=== PATIENT | female | born 1985 | race Two or more races ===

== ENCOUNTER 2020-03-05 09:00 | Emergency (ER) | payer OTHER ==
--- NOTE | 2020-03-05 09:11 | ED Physician Documentation ---
PD HPI FEMALE - Stated complaint Stated Complaint: 6 WEEKS, SPOTTING, CRAMPS - History obtained from History obtained from: Patient - History of Present Illness Timing - onset: How many days ago (2) Timing - duration: Days (2) Timing - details: Intermittant Associated symptoms: Vaginal bleeding (spotting with mild cramps 2 days ago and again today. Is 6 weeks presumedly. She had been having some irregular bleeding and cramps with IUD, so had the IUD removed 7 weeks ago. No other control used. Had not period and so had urine preg test last week that was positive.). No: Fever Contributing factors: , Sexually active. No: Exposed to STD Similar symptoms before: Has not had sx before (did not have spotting with other pregnancies.) Recently seen: Not recently seen Review of Systems Constitutional: denies: Fever Throat: denies: Sore throat Respiratory: denies: Cough : reports: Vaginal bleeding (spotting), Now EGA (6-7). denies: Dysuria, Discharge Neurologic: denies: Near syncope PD PAST MEDICAL HISTORY - Past Medical History Past Medical History: No - Allergies Allergies/Adverse Reactions: Allergies Allergy/AdvReac Type Severity Reaction Status Date / Time acetaminophen [From [place]] Allergy Anaphylaxis Verified 03/05/20 09:13 hydrocodone [From [place]] Allergy Anaphylaxis Verified 03/05/20 09:13 PD ED PE NORMAL - Vitals Vital signs reviewed: Yes - General General: Alert and oriented X 3, No acute distress, Well developed/nourished - Cardiac Cardiac: RRR, No murmur - Respiratory Respiratory: Clear bilaterally - Abdomen Abdomen: Soft, Non tender - Female Female : Deferred, Other (bedside U/S by me showed an IUP with 6w2d size of GS with pole. No pelvic free fluid. ) - Rectal Rectal: Deferred - Back Back: No CVA TTP - Derm Derm: Normal color, Warm and dry Results - Vitals Vitals: Vital Signs - 24 hr 03/05/20 03/05/20 09:07 10:29 Temperature 37.0 C Heart Rate 79 60 Respiratory 16 16 Rate Blood Pressure 119/79 111/73 O2 Saturation 100 100 Oxygen O2 Source Room air - Labs Labs: Laboratory Tests 03/05/20 03/05/20 03/05/20 09:32 09:58 09:58 WBC 3.3 L RBC 4.27 Hgb 12.7 Hct 37.0 MCV 86.7 MCH 29.7 MCHC 34.3 RDW 12.4 Plt Count 338 MPV 8.9 Neut # (Auto) 1.3 L Lymph # (Auto) 1.6 [place] # (Auto) 0.4 Eos # (Auto) 0.1 Baso # (Auto) 0.0 Absolute Nucleated RBC 0.00 Nucleated RBC % 0.0 HCG, Quant Urine Color YELLOW Urine Clarity CLEAR Urine pH 6.5 Ur Specific [place] 1.020 Urine Protein NEGATIVE Urine Glucose (UA) NEGATIVE Urine Ketones NEGATIVE Urine Occult Blood NEGATIVE Urine Nitrite NEGATIVE Urine Bilirubin NEGATIVE Urine Urobilinogen 0.2 (NORMAL) Ur Leukocyte Esterase NEGATIVE Ur Microscopic Review NOT INDICATED Urine Culture Comments NOT INDICATED Urine HCG, Qual POSITIVE Blood Type A POSITIVE 03/05/20 09:58 WBC RBC Hgb Hct MCV MCH MCHC RDW Plt Count MPV Neut # (Auto) Lymph # (Auto) [place] # (Auto) Eos # (Auto) Baso # (Auto) Absolute Nucleated RBC Nucleated RBC % HCG, Quant 23838.00 Urine Color Urine Clarity Urine pH Ur Specific [place] Urine Protein Urine Glucose (UA) Urine Ketones Urine Occult Blood Urine Nitrite Urine Bilirubin Urine Urobilinogen Ur Leukocyte Esterase Ur Microscopic Review Urine Culture Comments Urine HCG, Qual Blood Type PD MEDICAL DECISION MAKING - ED course Complexity details: reviewed results (bedside U/S showing IUP GS with pole of 6w2d size. ), considered differential, d/w patient Departure - Departure Disposition: 01 Home, Self Care Clinical Impression: Vaginal bleeding in Condition: Stable Record reviewed to determine appropriate education?: Yes Follow-Up: [facility] [Provider Group] Comments: Stay well-hydrated. Tylenol or ibuprofen if needed for pains or cramps. These are both okay in early . Tylenol will be fine through all of . Continue with your vitamins. Follow-up with the clinic on the as planned. At that point they likely will want to recheck your hCG level to ensure its rising at an appropriate level compared to today's. Return if significant bleeding, cramps or pains, persistent vomiting or other concerns. Otherwise some brief bleeding and cramps in early is relatively common and typically resolves within a day or 2. Discharge Date/Time: 03/05/20 10:46
[2020-03-05 09:39] LABS: BILIRUBIN,URINE NEGATIVE (NEGATIVE); GLUCOSE, URINE (UA) NEGATIVE (NEGATIVE); KETONES,URINE (UA) NEGATIVE (NEGATIVE); LEUKOCYTE ESTERASE, URINE NEGATIVE (NEGATIVE); NITRITE,URINE NEGATIVE (NEGATIVE); OCCULT BLOOD,URINE NEGATIVE (NEGATIVE); PH,URINE 6.5 PH (5.0-7.5); PROTEIN,URINE NEGATIVE (NEGATIVE); UROBILINOGEN,URINE 0.2 (NORMAL) E.U./dL (NORMAL)
[2020-03-05] MEDS ORDERED: ACETAMINOPHEN 325 MG TABLET PO STA (09:41)
[2020-03-05 09:43] LABS: CLARITY,URINE CLEAR (CLEAR); HCG UR QUAL POSITIVE
[2020-03-05 10:13] LABS: BASOPHILS % (AUTO) 0.3 %; EOSINOPHILS # (AUTO) 0.1 10^3/uL (0.0-0.7); EOSINOPHILS % (AUTO) 2.4 %; HGB - HEMOGLOBIN 12.7 g/dL (12.0-16.0); LYMPHOCYTES # (AUTO) 1.6 10^3/uL (1.5-3.5); LYMPHOCYTES % (AUTO) 47.1 %; MEAN CORPUSCULAR HEMOGLOBIN 29.7 pg (27.0-31.0); MEAN CORPUSCULAR HGB CONC 34.3 g/dL (32.0-36.0); MEAN CORPUSCULAR VOLUME 86.7 fL (81.0-99.0); MEAN PLATELET VOLUME 8.9 fL (7.9-10.8); MONOCYTES # (AUTO) 0.4 10^3/uL (0.0-1.0); MONOCYTES % (AUTO) 12.3 %; NEUTROPHILS # (AUTO) 1.3 10^3/uL (1.5-6.6); NEUTROPHILS % (AUTO) 37.9 %; PLT - PLATELET COUNT 338 10^3/uL (130-450); RED BLOOD COUNT 4.27 10^6/uL (4.20-5.40); RED CELL DISTRIBUTION WIDTH 12.4 % (12.0-15.0); WHITE BLOOD COUNT 3.3 x10^3/uL (4.8-10.8)
[2020-03-05 10:29] VITALS: BP 111/73
== END 2020-03-05 10:46 | disposition home or self-care (01) ==
LOC: ED 09:00
DX: O20.9 Hemorrhage in early pregnancy, unspecified (principal); Z3A.01 Less than 8 weeks gestation of pregnancy
CPT/HCPCS: 36415; 81003; 81025; 84702; 85025; 86900; 86901; 99283; 99284; A9270; 81001; 87086

== ENCOUNTER 2020-03-07 16:20 | Emergency (ER) | payer OTHER ==
[2020-03-07 16:52] LABS: BILIRUBIN,URINE NEGATIVE (NEGATIVE); GLUCOSE, URINE (UA) NEGATIVE (NEGATIVE); KETONES,URINE (UA) NEGATIVE (NEGATIVE); LEUKOCYTE ESTERASE, URINE NEGATIVE (NEGATIVE); NITRITE,URINE NEGATIVE (NEGATIVE); OCCULT BLOOD,URINE TRACE-INTA (NEGATIVE); PH,URINE 7.5 PH (5.0-7.5); PROTEIN,URINE NEGATIVE (NEGATIVE); UROBILINOGEN,URINE 0.2 (NORMAL) E.U./dL (NORMAL)
[2020-03-07 16:55] LABS: CLARITY,URINE CLEAR (CLEAR)
[2020-03-07 17:53] LABS: BASOPHILS % (AUTO) 0.6 %; EOSINOPHILS # (AUTO) 0.1 10^3/uL (0.0-0.7); EOSINOPHILS % (AUTO) 1.9 %; HGB - HEMOGLOBIN 12.5 g/dL (12.0-16.0); LYMPHOCYTES # (AUTO) 2.3 10^3/uL (1.5-3.5); LYMPHOCYTES % (AUTO) 48.7 %; MEAN CORPUSCULAR HEMOGLOBIN 29.9 pg (27.0-31.0); MEAN CORPUSCULAR HGB CONC 34.3 g/dL (32.0-36.0); MEAN CORPUSCULAR VOLUME 87.1 fL (81.0-99.0); MEAN PLATELET VOLUME 8.8 fL (7.9-10.8); MONOCYTES # (AUTO) 0.4 10^3/uL (0.0-1.0); MONOCYTES % (AUTO) 9.3 %; NEUTROPHILS # (AUTO) 1.8 10^3/uL (1.5-6.6); NEUTROPHILS % (AUTO) 39.3 %; PLT - PLATELET COUNT 334 10^3/uL (130-450); RED BLOOD COUNT 4.18 10^6/uL (4.20-5.40); RED CELL DISTRIBUTION WIDTH 12.3 % (12.0-15.0); WHITE BLOOD COUNT 4.6 x10^3/uL (4.8-10.8)
[2020-03-07] MEDS ORDERED: SODIUM CHLORIDE 0.9% 1,000 ML IV STA ×2 (18:02)
--- NOTE | 2020-03-07 18:03 | ED Physician Documentation ---
PD HPI FEMALE - Stated complaint Stated Complaint: BLEEDING - Chief complaint Chief Complaint: Abd Pain - History obtained from History obtained from: Patient - History of Present Illness Timing - onset: How many days ago (2) Timing - duration: Days (2) Timing - details: Gradual onset Pain level max: 7 Pain level max: 5 Associated symptoms: Pelvic pain (L pelvic pain), Vaginal bleeding. 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 Bedside ultrasound revealed a 6-week 2-day intrauterine at that time. Incre ased bleeding today increasing pain to the left pelvic area. Review of Systems Constitutional: denies: Fever, Chills Respiratory: denies: Cough, Wheezing GI: reports: Nausea. denies: Vomiting, Diarrhea : denies: Dysuria, Frequency, Hesitancy Skin: denies: Rash Musculoskeletal: denies: Neck pain, Back pain Neurologic: reports: Other (Patient states that she feels lightheaded when she stands up). denies: Focal weakness, Numbness PD PAST MEDICAL HISTORY - Past Medical History Past Medical History: Yes - Past Surgical History Past Surgical History: No - Allergies Allergies/Adverse Reactions: Allergies Allergy/AdvReac Type Severity Reaction Status Date / Time acetaminophen [From [place]] Allergy Anaphylaxis Verified 03/05/20 09:13 hydrocodone [From [place]] Allergy Anaphylaxis Verified 03/05/20 09:13 - Social History Does the pt smoke?: No Smoking Status: Never smoker Does the pt drink ETOH?: No Does the pt have substance abuse?: No - Immunizations Immunizations are current?: Yes PD ED PE NORMAL - Vitals Vital signs reviewed: Yes - General General: Alert and oriented X 3, No acute distress, Well developed/nourished - HEENT HEENT: Moist mucous membranes - Neck Neck: Supple, no meningeal sign - Cardiac Cardiac: RRR, Strong equal pulses - Respiratory Respiratory: No respiratory distress, Clear bilaterally - Abdomen Abdomen: Soft, Non distended, Other (Tender to palpation left lower quadrant. No peritoneal signs.) - Back Back: No CVA TTP - Derm Derm: Warm and dry - Extremities Extremities: No edema, No calf tenderness / cord - Neuro Neuro: Alert and oriented X 3 - Psych Psych: Normal mood, Normal affect Results - Vitals Vitals: Vital Signs - 24 hr 03/07/20 03/07/20 03/07/20 16:22 18:11 19:41 Temperature 37.5 C Heart Rate 72 78 65 Respiratory 18 16 18 Rate Blood Pressure 123/60 101/76 127/76 O2 Saturation 100 99 100 03/07/20 03/07/20 21:20 21:28 Temperature 37.1 C Heart Rate 65 Respiratory 18 Rate Blood Pressure 127/76 O2 Saturation 100 Oxygen O2 Source Room air - Labs Labs: Laboratory Tests 03/07/20 03/07/20 03/07/20 16:40 17:45 17:45 WBC 4.6 L RBC 4.18 L Hgb 12.5 Hct 36.4 L MCV 87.1 MCH 29.9 MCHC 34.3 RDW 12.3 Plt Count 334 MPV 8.8 Neut # (Auto) 1.8 Lymph # (Auto) 2.3 [place] # (Auto) 0.4 Eos # (Auto) 0.1 Baso # (Auto) 0.0 Absolute Nucleated RBC 0.00 Nucleated RBC % 0.0 Sodium 133 L Potassium 3.8 Chloride 102 Carbon Dioxide 23 Anion Gap 8.0 BUN 11 Creatinine 0.6 Estimated GFR (MDRD) 114 Glucose 80 Calcium 8.8 Total Bilirubin 0.7 AST 21 ALT 18 Alkaline Phosphatase 41 L Total Protein 7.8 Albumin 4.3 Globulin 3.5 Albumin/Globulin Ratio 1.2 Lipase 33 HCG, Quant Urine Color YELLOW Urine Clarity CLEAR Urine pH 7.5 Ur Specific [place] 1.020 Urine Protein NEGATIVE Urine Glucose (UA) NEGATIVE Urine Ketones NEGATIVE Urine Occult Blood TRACE-INTA Urine Nitrite NEGATIVE Urine Bilirubin NEGATIVE Urine Urobilinogen 0.2 (NORMAL) Ur Leukocyte Esterase NEGATIVE Ur Microscopic Review NOT INDICATED Urine Culture Comments NOT INDICATED 03/07/20 17:45 WBC RBC Hgb Hct MCV MCH MCHC RDW Plt Count MPV Neut # (Auto) Lymph # (Auto) [place] # (Auto) Eos # (Auto) Baso # (Auto) Absolute Nucleated RBC Nucleated RBC % Sodium Potassium Chloride Carbon Dioxide Anion Gap BUN Creatinine Estimated GFR (MDRD) Glucose Calcium Total Bilirubin AST ALT Alkaline Phosphatase Total Protein Albumin Globulin Albumin/Globulin Ratio Lipase HCG, Quant 33759.00 Urine Color Urine Clarity Urine pH Ur Specific [place] Urine Protein Urine Glucose (UA) Urine Ketones Urine Occult Blood Urine Nitrite Urine Bilirubin Urine Urobilinogen Ur Leukocyte Esterase Ur Microscopic Review Urine Culture Comments - Rads (name of study) OB ultrasound Radiology: Prelim report reviewed, EMP read contemporaneously, See rad report PD MEDICAL DECISION MAKING - ED course Complexity details: reviewed results, re-evaluated patient, considered differential, d/w patient, d/w family ED course: 34-year-old female with vaginal bleeding complicating early . Her ultrasound appears to show a twin gestation. Her hCG did decrease slightly, unclear if this is representing a miscarriage at this time or not. We will have her follow-up with her doctor on Sunday as scheduled for repeat hCG, if the hCG drops further, likely miscarriage. Patient counseled regarding signs and symptoms for which I believe and urgent re-evaluation would be necessary. Patient with good understanding of and agreement to plan and is comfortable going home at this time This document was made in part using voice recognition software. While efforts are made to proofread this document, sound alike and grammatical errors may occur. 1. Intrauterine twin demonstrated with a single gestational sac compatible with a monochorionic . However, differentiation between a diamniotic or monoamniotic is limited on the current study. Recommend a short-term follow-up study for further evaluation. 2. [place]-rump length measurements correspond to calculated gestational ages of 6 weeks 3 days for twin A and 6 weeks 0 days for twin B. No heart motion is identified at this time, likely due to early gestational age. Recommend attention on follow-up. 3. Small subchorionic hematoma. Departure - Departure Disposition: 01 Home, Self Care Clinical Impression: Bleeding in early Twin gestation in first trimester Qualifiers: Multiple gestation type: unspecified Qualified Code(s): O30.001 - Twin , unspecified number of placenta and unspecified number of amniotic sacs, first trimester Condition: Good Instructions: ED Miscarriage Poss Follow-Up: [facility] [Provider Group] - 03/09/20 Comments: Return if you worsen. Follow-up with your doctor on Sunday for a repeat hCG. The results of your current hCG levels are below as well as your ultrasound. 1. Intrauterine twin demonstrated with a single gestational sac compatible with a monochorionic . However, differentiation between a diamniotic or monoamniotic is limited on the current study. Recommend a short-term follow-up study for further evaluation. 2. [place]-rump length measurements correspond to calculated gestational ages of 6 weeks 3 days for twin A and 6 weeks 0 days for twin B. No heart motion is identified at this time, likely due to early gestational age. Recommend attention on follow-up. 3. Small subchorionic hematoma. HCG 03/05/2020 - [id number] HCG 03/07/2020 - [id number]
[2020-03-07 18:09] LABS: ALBUMIN 4.3 g/dL (3.2-5.5); ALBUMIN/GLOBULIN RATIO 1.2 (1.0-2.2); BILIRUBIN,TOTAL 0.7 mg/dL (0.2-1.0); CALCIUM 8.8 mg/dL (8.5-10.3); CREATININE 0.6 mg/dL (0.4-1.0); TOTAL PROTEIN 7.8 g/dL (6.7-8.2)
[2020-03-07 19:43] VITALS: BP 127/76
--- NOTE | 2020-03-07 20:43 | Ultrasound Report ---
PROCEDURE: OB First Trimester w/TV INDICATIONS: 7 weeks preg, vag bleed OUTSIDE/PRIOR DATING DATA: Last menstrual period (LMP): 01/08/2020. LMP-based estimated date of delivery (KENRICK): 10/14/2020. First dating scan (date and location): 03/07/2020. Estimated date of delivery (KENRICK) from first dating scan: 10/28/2020. TECHNIQUE: Real-time scanning was performed of the fetuses and maternal pelvic organs, with image documentation. Endovaginal scanning: Performed for better visualization of the fetuses and maternal adnexal structu res. COMPARISON: None. FINDINGS: GENERAL: An intrauterine monochorionic twin is present with a single gestational sac and 2 amniotic sacs. Yolk sacs are not well visualized on the images obtained, limiting differentiation between a diamniot ic or monoamniotic . No discrete intervening membrane is visualized. There is a small perige stational subchorionic hematoma measuring approximately 0.7 x 0.6 x 1.2 cm posteriorly.. Embryo A: 0.39 cm crown-rump length corresponding to gestational age of 6 weeks 3 days. heart motion not well seen. Embryo B: 0.34 cm corresponding to gestational age of 6 weeks 3 days. heart motion not well se en. Measurement variability in dating: +/- 4 weeks by LMP, +/- 7 days by mean sac diameter (use before 6 weeks gestation if crown-rump length not able to be measured), +/- 5 days by crown-rump length (6-12 weeks gestation). Maternal organs: Ovaries measure approximately 3.7 x 2.7 x 2.7 cm on the right and 1.8 x 1.0 x 2.2 c m on the left. No adnexal masses.. Limited images through the kidneys demonstrate no hydronephrosis. IMPRESSION: 1. Intrauterine twin demonstrated with a single gestational sac compatible with a monochori onic . However, differentiation between a diamniotic or monoamniotic is limited on the current study. Recommend a short-term follow-up study for further evaluation. 2. [place]-rump length measurements correspond to calculated gestational ages of 6 weeks 3 days for twi n A and 6 weeks 0 days for twin B. No heart motion is identified at this time, likely due to ea rly gestational age. Recommend attention on follow-up. 3. Small subchorionic hematoma. Reviewed by: Akash Lay MD on 03/07/2020 8:42 PM PST Approved by: Akash Lay MD on 03/07/2020 8:42 PM PST Station ID: [id number]
== END 2020-03-07 21:35 | disposition home or self-care (01) ==
LOC: ED 16:20
DX: O20.9 Hemorrhage in early pregnancy, unspecified (principal); O30.001 Twin pregnancy, unspecified number of placenta and unspecified number of amniotic sacs, first trimester; Z3A.01 Less than 8 weeks gestation of pregnancy
CPT/HCPCS: 76801; 76817; 80053; 81001; 81003; 83690; 84702; 85025; 87086; 99284

== ENCOUNTER 2021-01-04 15:26 | Outpatient (CLI) | payer OTHER ==
--- NOTE | 2021-01-05 12:47 | Ultrasound Report ---
PROCEDURE: OB First Trimester INDICATIONS: POSITIVE TEST OUTSIDE/PRIOR DATING DATA: Last menstrual period (LMP): 10/17/2020. LMP-based estimated date of delivery (KENRICK): 07/24/2021. First dating scan (date and location): 01/04/2021. Estimated date of delivery (KENRICK) from first dating scan: 08/02/2021. TECHNIQUE: Real-time scanning was performed of the fetus and maternal pelvic organs, with image documentation. COMPARISON: None FINDINGS: Embryo: [place]-rump length measures 3.1 cm corresponding to 10 weeks 0 days. Heart rate: 176 Measurement variability in dating: +/- 4 weeks by LMP, +/- 7 days by mean sac diameter (use before 6 weeks gestation if crown-rump length not able to be measured), +/- 5 days by crown-rump length (6-12 weeks gestation). Maternal organs: Ovaries within normal limits, with right corpus luteal cyst measuring 2.2 cm. IMPRESSION: 10 week 0 day single living IUP. Reviewed by: NIKOLAI Ortega on 01/05/2021 12:46 PM PDT Approved by: Clemente Medina MD on 01/05/2021 12:46 PM PDT Station ID: [id number]
== END 2021-01-04 15:27 | disposition home or self-care (01) ==
LOC: DI 15:26
PROVIDERS: ATTEND Obstetrics & Gynecology
DX: Z32.01 Encounter for pregnancy test, result positive (principal)

== ENCOUNTER 2021-01-17 08:00 | Outpatient (CLI) | payer OTHER ==
[2021-01-18 22:56] LABS: CHLAMYDIA TRACHOMATIS DNA NEGATIVE (NEGATIVE); NEISSERIA GONORRHOEAE DNA NEGATIVE (NEGATIVE); TRICHOMONAS VAGINALIS DNA NEGATIVE (NEGATIVE)
== END 2021-01-17 23:59 | disposition home or self-care (01) ==
LOC: LAB.WC 08:00
PROVIDERS: ATTEND Obstetrics & Gynecology
DX: Z34.90 Encounter for supervision of normal pregnancy, unspecified, unspecified trimester (principal); Z36.89 Encounter for other specified antenatal screening
CPT/HCPCS: 87491; 87591; 87661

== ENCOUNTER 2021-01-17 14:06 | Outpatient (CLI) | payer OTHER ==
[2021-01-17 14:22] LABS: BASOPHILS % (AUTO) 0.4 %; EOSINOPHILS # (AUTO) 0.1 10^3/uL (0.0-0.7); EOSINOPHILS % (AUTO) 1.3 %; HCT - HEMATOCRIT 32.7 % (37.0-47.0); HGB - HEMOGLOBIN 11.4 g/dL (12.0-16.0); LYMPHOCYTES % (AUTO) 29.4 %; MEAN CORPUSCULAR HEMOGLOBIN 30.2 pg (27.0-31.0); MEAN CORPUSCULAR HGB CONC 34.9 g/dL (32.0-36.0); MEAN CORPUSCULAR VOLUME 86.7 fL (81.0-99.0); MEAN PLATELET VOLUME 8.4 fL (7.9-10.8); MONOCYTES # (AUTO) 0.7 10^3/uL (0.0-1.0); MONOCYTES % (AUTO) 9.6 %; NEUTROPHILS # (AUTO) 4.1 10^3/uL (1.5-6.6); NEUTROPHILS % (AUTO) 58.9 %; PLT - PLATELET COUNT 333 10^3/uL (130-450); RED BLOOD COUNT 3.77 10^6/uL (4.20-5.40); RED CELL DISTRIBUTION WIDTH 12.2 % (12.0-15.0); WHITE BLOOD COUNT 6.9 x10^3/uL (4.8-10.8)
[2021-01-17 14:38] LABS: ALBUMIN 3.5 g/dL (3.2-5.5); ALBUMIN/GLOBULIN RATIO 0.9 (1.0-2.2); BILIRUBIN,TOTAL 0.2 mg/dL (0.2-1.0); CALCIUM 9.1 mg/dL (8.5-10.3); CREATININE 0.5 mg/dL (0.4-1.0); POTASSIUM 3.6 mmol/L (3.5-5.0); TOTAL PROTEIN 7.2 g/dL (6.7-8.2)
[2021-01-18 12:21] LABS: HEPATITIS B SURFACE ANTIGEN NON-REACTIVE (NON-REACTIVE); HEPATITIS C ANTIBODY NON-REACTIVE (NON-REACTIVE)
[2021-01-18 15:46] LABS: HIV AG/AB 4TH GEN NON-REACTIVE (NON-REACTIVE)
== END 2021-01-17 14:07 | disposition home or self-care (01) ==
LOC: LAB 14:06
PROVIDERS: ATTEND Obstetrics & Gynecology
DX: O99.619 Diseases of the digestive system complicating pregnancy, unspecified trimester (principal); K82.9 Disease of gallbladder, unspecified; Z36.89 Encounter for other specified antenatal screening
CPT/HCPCS: 36415; 80053; 85025; 86592; 86762; 86787; 86803; 86850; 86900; 86901; 87340; 87389

== ENCOUNTER 2021-01-21 17:42 | Outpatient (CLI) | payer OTHER ==
[2021-01-21 18:38] LABS: % IRON SATURATION 15 % (20-50); IRON 57 ug/dL (28-170); TOTAL IRON BINDING CAPACITY 371 ug/dL (250-450); TRANSFERRIN 265 mg/dL (192-382)
== END 2021-01-21 17:43 | disposition home or self-care (01) ==
LOC: LAB 17:42
PROVIDERS: ATTEND Obstetrics & Gynecology
DX: O99.019 Anemia complicating pregnancy, unspecified trimester (principal)
CPT/HCPCS: 36415; 81599; 82728; 83020; 83540; 84466; 85014; 85018; 85041

== ENCOUNTER 2021-03-14 09:12 | Outpatient (CLI) | payer OTHER ==
--- NOTE | 2021-03-14 17:17 | Ultrasound Report ---
PROCEDURE: OB Detailed Eval INDICATIONS: SUPERVISION OF OUTSIDE/PRIOR DATING DATA: Last menstrual period (LMP): 10/17/2020. LMP-based estimated date of delivery (KENRICK): 07/24/2021. First dating scan (date and location): 01/04/2021. Estimated date of delivery (KENRICK) from first dating scan: 08/02/2021. The below data below was generated using the ultrasound KENRICK of 08/02/2021 TECHNIQUE: Real-time scanning was performed of the fetus, with image documentation and biometric measurements. Endovaginal scanning: None COMPARISON: None. FINDINGS: General: A single living intrauterine gestation is present. Presentation: Cephalic Placenta: Placental position is posterior, without previa. Amniotic fluid index: 16.8 cm, within normal limits for gestational age. heart rate: 145 beats per minute. Maternal cervical canal: 4.0 cm long; normal length is 2.5 cm or more. biometrics: Biparietal diameter: 4.76 cm, 20 weeks 3 days Head circumference: 16.98 cm, 19 weeks 4 days Abdominal circumference: 15.19 cm, 20 weeks 3 days Femur length: 3.23 cm, 20 weeks 0 days Estimated gestational age from initial scan: 19 weeks 6 days Composite gestational age from present scan: 20 weeks 1 day Estimated weight and percentile: 338.1 g, 65.3 percentile Measurement variability in biometric dating: +/- 10 days from 12-20 weeks gestation, +/- 2 weeks from 20-30 weeks gestation, +/- 3 weeks at 30 weeks gestation or later. Anatomic survey: Neuro: Ventricles are normal at less than 10 mm. Cisterna magna is normal at 3-11 mm. Cerebellum i s normal in size and morphology. Nuchal skin fold: Normal at less than 6 mm between 14 and 20 weeks gestational age. Face: Nose and lips, facial profile are normal. Spine: No evidence for spina bifida. Heart: 4-chambered heart is present, with normal ventricular outflow tracts. Diaphragm: Diaphragm is intact. Stomach: Left-sided stomach is present. Kidneys: No hydronephrosis. Normal is less than 5 mm in 2nd trimester, less than 7 mm in 3rd trimester. Cord: 3 vessel cord has orthotopic insertion. Bladder: Normal in size. Extremities: All 4 extremities are visualized. Question succenturiate Placenta IMPRESSION: 1. Living second trimester intrauterine . Current ultrasound age is 2 days greater than clin ical age based on initial ultrasound. 2. Normal anatomy study. 3. Question succenturiate lobed placenta. Reviewed by: Clemente Medina MD on 03/14/2021 5:15 PM PST Approved by: Clemente Medina MD on 03/14/2021 5:15 PM PST Station ID: [id number]
== END 2021-03-14 09:13 | disposition home or self-care (01) ==
LOC: DI 09:12
PROVIDERS: ATTEND Obstetrics & Gynecology
DX: Z34.02 Encounter for supervision of normal first pregnancy, second trimester (principal); Z36.89 Encounter for other specified antenatal screening

== ENCOUNTER 2021-03-18 15:37 | Outpatient (CLI) | payer OTHER ==
--- NOTE | 2021-03-18 17:12 | Ultrasound Report ---
PROCEDURE: Duplex Ext Veins Right INDICATIONS: RT LEG VARICOSE VEINS W/PAIN TECHNIQUE: Real-time imaging, as well as color and pulse Doppler interrogation, were performed of the lower extr emity deep veins from the inguinal ligament to the popliteal fossa. COMPARISON: None. FINDINGS: The deep veins are normally compressible, and free of intraluminal thrombus. Color and pu lse Doppler demonstrate normal phasic intraluminal flow. There is normal augmentation response to di stal compression maneuver. IMPRESSION: 1. No evidence of DVT in the right lower extremity. 2. No thrombosed varicosities are seen. Reviewed by: Hilary Troy MD on 03/18/2021 5:11 PM PST Approved by: Hilary Troy MD on 03/18/2021 5:11 PM PST Station ID: [id number]
== END 2021-03-18 15:38 | disposition home or self-care (01) ==
LOC: DI 15:37
PROVIDERS: ATTEND Obstetrics & Gynecology
DX: I83.811 Varicose veins of right lower extremity with pain (principal)

== ENCOUNTER 2021-05-19 11:23 | Outpatient (CLI) | payer OTHER ==
[2021-05-19 12:49] LABS: HCT - HEMATOCRIT 30.6 % (37.0-47.0); HGB - HEMOGLOBIN 10.6 g/dL (12.0-16.0); MEAN CORPUSCULAR HEMOGLOBIN 30.4 pg (27.0-31.0); MEAN CORPUSCULAR HGB CONC 34.6 g/dL (32.0-36.0); MEAN CORPUSCULAR VOLUME 87.7 fL (81.0-99.0); MEAN PLATELET VOLUME 8.3 fL (7.9-10.8); RED BLOOD COUNT 3.49 10^6/uL (4.20-5.40); RED CELL DISTRIBUTION WIDTH 13.3 % (12.0-15.0); WHITE BLOOD COUNT 12.2 x10^3/uL (4.8-10.8)
== END 2021-05-19 11:24 | disposition home or self-care (01) ==
LOC: LAB 11:23
PROVIDERS: ATTEND Obstetrics & Gynecology
DX: Z36.89 Encounter for other specified antenatal screening (principal)
CPT/HCPCS: 36415; 82950; 85027

== ENCOUNTER 2021-05-26 08:00 | Outpatient (CLI) | payer OTHER ==
[2021-05-26 09:05] LABS: GTT GLUCOSE,FASTING 76 mg/dL (70-100)
== END 2021-05-26 08:01 | disposition home or self-care (01) ==
LOC: LAB 08:00
PROVIDERS: ATTEND Obstetrics & Gynecology
DX: O99.810 Abnormal glucose complicating pregnancy (principal)
CPT/HCPCS: 36415; 82951; 82952

== ENCOUNTER 2021-06-14 10:01 | Outpatient (CLI) | payer OTHER | END 2021-06-14 10:02 | disposition home or self-care (01) | LOC: NS 10:01 | PROVIDERS: ATTEND Obstetrics & Gynecology | DX: Z53.9 Procedure and treatment not carried out, unspecified reason (principal) ==

== ENCOUNTER 2021-06-16 15:31 | Outpatient (CLI) | payer OTHER ==
[2021-06-16 15:54] VITALS: BP 116/66
--- NOTE | 2021-06-16 18:00 | PROVIDER PROGRESS NOTE ---
- HPI Chief Complaint: Other (Cough) Current : Current EDU 08/02/21 Gestation 33 Weeks and 2 Days 4 Para 2 Vital Signs Temperature 97.7 F 06/16/21 15:53 Heart Rate 90 06/16/21 15:53 Respiratory Rate 17 06/16/21 15:53 Blood Pressure 116/66 06/16/21 15:53 O2 Saturation 100 06/16/21 15:53 Temperature 97.7 F 06/16/21 15:54 Heart Rate 90 06/16/21 15:53 Respiratory Rate 17 06/16/21 15:53 Blood Pressure 116/66 06/16/21 15:53 O2 Saturation 100 06/16/21 15:53 - Procedures OB Procedure Performed: NST Diagnosis/Indication for NST: Other (nonreactive NST) NST Procedure: NST Procedure Start Date 06/16/21 Start Time 15:45 Stop Time 17:35 Vibroacoustic Stimulation Used Yes Patient States Movement Yes FHT: 140 BPM baseline, moderate variability, no accelerations, no decelerations [place]: Quiescent. Service Date of procedure: 05/16/21 (Read 06/16/21) - Plan Plan: Patient is a 35-year-old -0-1-2 at 33 weeks 2 days gestation presenting to triage for cough. She has good movement, no leaking, no vaginal bleeding. She denies headache, right upper quadrant pain, changes in vision. She does have back and leg pain, saying this is from coughing so much. She was seen approximately 1 week ago for this during her visit. She started taking Mucinex for 1 week and had minimal relief. She says there is occasional stringy blood in her mucus, but no daron bleeding. Also taking Claritin and Flonase for allergies. course Brings blood glucose logs and all values are WNL. She met with nursing educator which she felt was helpful. Reviewed PTL precautions and FM monitoring Pt verbalized understanding and agrees to above plan. She denies further questions or concerns at this time. Return in 2 wks or sooner PRN. 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 Unvaccinated -Recommend COVID testing with [facility] -Ordered albuterol inhaler -O2 sats wnl A positive Rubella imm VZV: immune Genetic testing:declined and declined carrier screening FAS:posterior placenta. EFW 65.4%ile, 3VC, 4.0 CL Glucola: 121, however reporting error stated 157 and 3H GTT was completed. Patient failed. Recommend profiling. Glucometer submitted. BG LOG: Influenza: 02/14/2021 Covid: declined TDAP 05/11/2021 GBS @ 36 wks HSV: Denies Breast pump Rx 05/02 MOD: Anticipate pp contraception: pap:03/14/2017; will need pp pap smear Past medical history Denies Past surgical history Unremarkable Family history Mother: Hypertension, CVD Social history Denies tobacco, alcohol, drug Physical exam Physical Exam Constitutional: alert, no acute distress, well hydrated, well developed, well nourished, appropriate dress. Occasional coughing while in room Skin: normal turgor, normal color. Head: atraumatic, normocephalic. Cardiovascular: RRR. Respiratory: no respiratory distress. Occasional cough. Inspiratory and expiratory wheezes. No crackling, but wet breath sounds. Abdomen: Gravid nondistended, nontender. Neurologic: normal, sensation intact, motor intact. Psych: affect and mood appropriate, normal interaction, good eye contact. BPP 8/8 Covid: Negative. Assessment and plan 35-year-old -0-1-2 at 33 weeks 2 days gestation with cough 1. Viral URI -Covid PCR negative. No fever, chills, decreased oxygenation. Able to manage with symptomatic relief although very uncomfortable. 2. Cough -Continue Mucinex. -Tessalon Tara sent to pharmacy. Encouraged to use at night to allow her to sleep 3. Non-reactive NST -Limited accelerations on NST. BPP 8/8.
--- NOTE | 2021-06-16 18:53 | Ultrasound Report ---
PROCEDURE: OB Biophysical Profile INDICATIONS: Non reactive nst OUTSIDE/PRIOR DATING DATA: Last menstrual period (LMP): 10/17/2020. LMP-based estimated date of delivery (KENRICK): 07/24/2021. First dating scan (date and location): 01/04/2021. Estimated date of delivery (KENRICK) from first dating scan: 08/02/2021. The below data below was generated using the study generated KENRICK of 08/02/2021 TECHNIQUE: Real-time scanning was performed of the fetus, with image documentation and biometric magen surements. Biophysical profile was also obtained. Endovaginal scanning: Not indicated COMPARISON: 03/14/2021 and 01/14/2021. FINDINGS: General: A single living intrauterine gestation is present. Presentation: Cephalic Placenta: Placental position is posterior, without previa. Amniotic fluid index: 17.0 cm, normal for gestational age. heart rate: 152 beats per minute. Maternal cervical canal: 4.9 cm long; normal length is 2.5 cm or more. Estimated gestational age from initial scan: 33 weeks, 2 days Biophysical profile: Tone: 2 points. Movement: 2 points. Respiration: 2 points. Largest pocket of fluid: 2 points. Umbilical artery Doppler: 2.7, 2.3, 3.3 IMPRESSION: 1. Single live intrauterine gestation with fetus in cephalic presentation. heart rate is 152 bp m. Normal amount of amniotic fluid. 2. biophysical profile score is 8 out of 8. 3. Normal umbilical artery S/D ratio. Reviewed by: David Argueta MD on 06/16/2021 6:51 PM PST Approved by: David Argueta MD on 06/16/2021 6:51 PM PST Station ID: [id number]
== END 2021-06-16 18:47 | disposition home or self-care (01) ==
LOC: WFO 15:31 → FBP 15:45 → WFO 18:47
PROVIDERS: ATTEND Obstetrics & Gynecology
DX: O99.513 Diseases of the respiratory system complicating pregnancy, third trimester (principal); J06.9 Acute upper respiratory infection, unspecified; J30.81 Allergic rhinitis due to animal (cat) (dog) hair and dander; O99.013 Anemia complicating pregnancy, third trimester; Z3A.33 33 weeks gestation of pregnancy; Z79.899 Other long term (current) drug therapy
CPT/HCPCS: 59025; 99213; 99215

== ENCOUNTER 2021-07-06 08:00 | Outpatient (CLI) | payer OTHER | END 2021-07-06 23:59 | disposition home or self-care (01) | LOC: LAB.WC 08:00 | PROVIDERS: ATTEND Obstetrics & Gynecology | DX: Z36.85 Encounter for antenatal screening for Streptococcus B (principal) | CPT/HCPCS: 87797 ==

== ENCOUNTER 2021-07-20 16:28 | Inpatient (IN) | payer OTHER ==
[2021-07-20] MEDS ORDERED: METHYLERGONOVINE 0.2 MG/ML VIAL IM PRN (16:59)
[2021-07-20] MEDS ORDERED: OXYTOCIN 10 UNIT/ML VIAL IM PRN (16:59)
[2021-07-20] MEDS ORDERED: AMPICILLIN 2 GM in SODIUM CHLORIDE 0.9% MINIBAG 100 ML IV ONE (16:59)
[2021-07-20] MEDS ORDERED: LABETALOL 20 MG/4 ML SYRINGE IVP PRN ×2 (16:59)
[2021-07-20] MEDS ORDERED: TRANEXAMIC ACID IN NACL 1,000 MG/100 ML BAG IV PRN (16:59)
[2021-07-20] MEDS ORDERED: TERBUTALINE 1 MG/ML VIAL SUBQ PRN (16:59)
[2021-07-20] MEDS ORDERED: hydrALAZINE INJ 20 MG/ML VIAL IVP PRN (16:59)
[2021-07-20] MEDS ORDERED: fentaNYL 100 MCG/2 ML VIAL IVP PRN (16:59)
[2021-07-20] MEDS ORDERED: miSOPROStoL 200 MCG TABLET BC PRN (16:59)
[2021-07-20] MEDS ORDERED: miSOPROStoL 200 MCG TABLET PR PRN (16:59)
[2021-07-20] MEDS ORDERED: CARBOPROST TROMETHAMINE 250 MCG/ML AMP IM PRN (16:59)
[2021-07-20] MEDS ORDERED: OXYTOCIN/SODIUM CHLORIDE 500 ML IV PRN (16:59)
[2021-07-20] MEDS ORDERED: SODIUM CHLORIDE FLUSH 0.9% 10 ML SYRINGE IVP PRN (16:59)
[2021-07-20] MEDS ORDERED: LIDOCAINE-MPF 1% 30 ML VIAL ID PRN (16:59)
--- NOTE | 2021-07-20 17:13 | HISTORY & PHYSICAL EXAMINATION ---
Admit History - Visit Reason Visit Reason: Contractions - : 4 Parity: 2 : 1 Care: positive: [facility] Risk/History: positive: Gestational diabetes Complications This : positive: None Smoking Status: Never smoker - Mother's Labs Mother's Blood Type: positive: A Mother's RH: positive: Positive GBS: positive: Group B Strep Positive Rubella Status: positive: Immune - Other Maternal History Other Maternal History: HPI: 36-year-old at 38 weeks 1 day gestation presenting with contractions since this morning. She was checked in clinic this morning and was 2 cm. She has good movement. Denies loss of fluid. No SERVIN/BV or RUQP. No vaginal bleeding. Denies nausea and vomiting. Denies urinary urgency or dysuria. All other symptoms reviewed and were negative except per HPI. Course LMP:10/17/2020 KENRICK by LMP:07/24/2021 Initial U/S:01/04/2021 @ 10w0d NOT c/w LMP. 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 Unvaccinated. -No complaints today. -Neg COVID testing -ENT recommend steroids but details lacking. Need HERMINIA to get records A positive Rubella imm VZV: immune Genetic testing:declined and declined carrier screening FAS:posterior placenta. EFW 65.4%ile, 3VC, 4.0 CL Glucola: 121, however reporting error stated 157 and 3H GTT was completed. Patient failed. Recommend profiling. Glucometer submitted. BG LOG: has been all wnl.. Recommend reducing profiling to 2 days per week Influenza: 02/14/2021 Covid: declined TDAP 05/11/2021 GBS 07/06/21 POSITIVE HSV: Denies Breast pump Rx 05/02 MOD: Anticipate . Desires IOL pp contraception:Considering tubal ligation versus vasectomy. pap:03/14/2017; will need pp pap smear PMH Denies PSH Denies OB History 1. 08/29/2009, 39 weeks, F, 7 pounds, . 2. 11/06/2018, 39 weeks, M, 7 pounds 11 ounces 3. 03/12/20, 7 weeks, SAB, twins SH Denies tobacco, alcohol, drugs Family History Mother: Hypertension, CVD Allergies Hydrocodone: "stopped breathing" Medications Albuterol PRN Ferrous sulfate Physical exam: General: Alert, oriented, no acute distress Head: Normal cephalic atraumatic Eyes: PERRLA, extraocular motions intact. Respiratory: Normal rate of respiration. No accessory muscle use, normal respiratory effort. Cardiovascular: Regular rate and rhythm Abdomen: Gravid, nontender, nondistended Extremities: Normal range of motion Neuro: Oriented x3. Normal movements Psych: Appropriate mood and affect. Normal judgment and insight SVE: 470/-2 FHT: 145 bpm baseline, moderate ability, accelerations present, no decelerations. Sumpter: 2 to 4 minutes Plan 36-year-old at 38 weeks 1 day gestation admitted for term labor 1. Term labor -progressed from 2-4 cm since clinic visit -Admit to L&D, admit labs -Epidural at patient's request -Plan on AROM and . 2. 38-weeks gestation 3. GBS positive -Ampicillin for GBS prophylaxis 4. Gestational diabetes managed with diet and exercise -POC glucose. Meds/Allgy - Home Medications Home Medications: Ambulatory Orders Medication Instructions Recorded Confirmed Benzonatate [Tessalon] 100 mg PO TID #30 cap 06/16/21 - Allergies Allergies/Adverse Reactions: Allergies Allergy/AdvReac Type Severity Reaction Status Date / Time acetaminophen [From [place]] Allergy Anaphylaxis Verified 03/05/20 09:13 hydrocodone [From [place]] Allergy Anaphylaxis Verified 03/05/20 09:13
[2021-07-20 17:50] LABS: BASOPHILS % (AUTO) 0.5 %; EOSINOPHILS # (AUTO) 0.2 10^3/uL (0.0-0.7); EOSINOPHILS % (AUTO) 2.3 %; HCT - HEMATOCRIT 35.1 % (37.0-47.0); HGB - HEMOGLOBIN 12.3 g/dL (12.0-16.0); LYMPHOCYTES # (AUTO) 2.4 10^3/uL (1.5-3.5); LYMPHOCYTES % (AUTO) 27.4 %; MEAN CORPUSCULAR HEMOGLOBIN 30.1 pg (27.0-31.0); MEAN PLATELET VOLUME 8.8 fL (7.9-10.8); MONOCYTES # (AUTO) 0.7 10^3/uL (0.0-1.0); MONOCYTES % (AUTO) 7.4 %; NEUTROPHILS # (AUTO) 5.4 10^3/uL (1.5-6.6); PLT - PLATELET COUNT 372 10^3/uL (130-450); RED BLOOD COUNT 4.08 10^6/uL (4.20-5.40); RED CELL DISTRIBUTION WIDTH 13.1 % (12.0-15.0); WHITE BLOOD COUNT 8.8 x10^3/uL (4.8-10.8)
--- NOTE | 2021-07-20 18:13 | ANESTHESIA ---
Pre-Anesthesia VS, & Labs - Diagnosis active labor - Procedure labor epidural Vital Signs: Temp Pulse Resp BP Pulse Ox 36.6 C 92 16 109/65 100 07/20/21 18:06 07/20/21 18:06 07/20/21 18:06 07/20/21 18:06 07/20/21 18:06 Height: 5 ft 2 in Weight (kg): 71.486 kg Body Mass Index: 28.8 BMI Classification: Overweight - NPO >8 hours - Is Patient ?: Yes - Lab Results Current Lab Results: Laboratory Tests 07/20/21 17:46: POC Whole Bld Glucose 71 07/20/21 17:30: Blood Type Cancelled, Antibody Screen Cancelled 07/20/21 16:59: WBC 8.8, RBC 4.08 L, Hgb 12.3, Hct 35.1 L, MCV 86.0, MCH 30.1, MCHC 35.0, RDW 13.1, Plt Count 372, MPV 8.8, Neut # (Auto) 5.4, Lymph # (Auto) 2.4, [place]y # (Auto) 0.7, Eos # (Auto) 0.2, Baso # (Auto) 0.0, Absolute Nucleated RBC 0.00, Nucleated RBC % 0.0 Lab results reviewed: Yes Fish Bones: 07/20/21 16:59 Home Medications and Allergies Active Medications Carboprost Tromethamine (Carboprost Tromethamine 250 Mcg/Ml Amp) 250 mcg IM .ONCE PRN PRN Reason: Hemorrhage Fentanyl (Fentanyl 100 Mcg/2 Ml Vial) 50 mcg IVP Q1H PRN PRN Reason: Severe Pain (score 7-10) Hydralazine HCl (Hydralazine Inj 20 Mg/Ml Vial) 10 mg IVP .ONCE PRN; Protocol PRN Reason: Step 9 of Labetalol protocol Stop: 07/25/21 17:10 Oxytocin/Sodium Chloride (Pitocin/Sodium Chloride) 500 mls @ 999 mls/hr IV PRN PRN; Protocol PRN Reason: POST- HEMORR PREVENTION Tranexamic Acid (Tranexamic 1,000 Mg/100ml-Nacl) 1,000 mg in 100 mls @ 600 mls/hr IV Q30M PRN PRN Reason: EBL >1200mL and within 3hr Ampicillin Sodium 1 gm/ Sodium (Chloride) 100 mls @ 200 mls/hr IV Q4H AZALEA Labetalol HCl (Labetalol 20 Mg/4 Ml Syringe) 20 - 80 mg IVP Q10M PRN; Protocol PRN Reason: SBP> or= 160 OR DBP> or= 110 Labetalol HCl (Labetalol 20 Mg/4 Ml Syringe) 20 mg IVP .ONCE PRN; Protocol PRN Reason: SBP> or= 160 OR DBP> or= 110 Lidocaine HCl (Lidocaine-Mpf 1% 30 Ml Vial) 30 ml ID ONCE PRN PRN Reason: PERINEAL REPAIR Stop: 07/21/21 16:59 Methylergonovine Maleate (Methylergonovine 0.2 Mg/Ml Vial) 0.2 mg IM .ONCE PRN PRN Reason: Hemorrhage Misoprostol (Misoprostol 200 Mcg Tablet) 600 mcg BC .ONCE PRN PRN Reason: Hemorrhage Misoprostol (Misoprostol 200 Mcg Tablet) 800 mcg SD .ONCE PRN PRN Reason: Hemorrhage Oxytocin (Oxytocin 10 Unit/Ml Vial) 10 unit IM .ONCE PRN PRN Reason: Step One if no IV access. Sodium Chloride (Sodium Chloride Flush 0.9% 10 Ml Syringe) 10 ml IVP PRN PRN PRN Reason: NEEDED PER PROVIDER ORDERS Sodium Chloride (Sodium Chloride Flush 0.9% 10 Ml Syringe) 10 ml IVP Q8H AZALEA Terbutaline Sulfate (Terbutaline 1 Mg/Ml Vial) 0.25 mg SUBQ .ONCE PRN PRN Reason: Tachystole Allergies/Adverse Reactions: Allergies Allergy/AdvReac Type Severity Reaction Status Date / Time acetaminophen [From [place]] Allergy Anaphylaxis Verified 03/05/20 09:13 hydrocodone [From [place]] Allergy Anaphylaxis Verified 03/05/20 09:13 Anes History & Medical History - Anesthetic History Anesthesia Complications: reports: Other-see comment (difficult epidural isaak cement) Family history of Anesthesia Complications: Denies Family history of Malignant Hyperthermia: Denies - Medical History Cardiovascular: reports: None Pulmonary: reports: None Gastrointestinal: reports: None Urinary: reports: None Neuro: reports: None Musculoskeletal: reports: None Endocrine/Autoimmune: reports: Other (Gestational DM) Smoking Status: Never smoker - Obstetrical History : 4 Parity: 2 Events: reports: Gestational diabetes Complications: reports: None Exam General: Alert, Oriented x3, Cooperative, No acute distress Dental: WNL Plan Anesthesia Type: Epidural Consent for Procedure(s) Verified and Reviewed: Yes Code Status: Attempt Resuscitation ASA classification: 2-Mild systemic disease Is this case an emergency?: No
[2021-07-20 18:24] LABS: ALBUMIN 3.2 g/dL (3.2-5.5); ALBUMIN/GLOBULIN RATIO 0.9 (1.0-2.2); BILIRUBIN,TOTAL 0.7 mg/dL (0.2-1.0); CALCIUM 9.5 mg/dL (8.5-10.3); CREATININE 0.5 mg/dL (0.4-1.0); POTASSIUM 3.4 mmol/L (3.5-5.0); TOTAL PROTEIN 6.9 g/dL (6.7-8.2)
[2021-07-20] MEDS ORDERED: BUPIVACAINE 0.25% PF 10 ML VIAL ONE (18:51)
[2021-07-20] MEDS ORDERED: ROPIVACAINE 0.2% 200 MG/100 ML BAG EP ONE (18:51)
[2021-07-20] MEDS ORDERED: LACTATED RINGERS 1,000 ML IV SCH (19:00)
[2021-07-20] MEDS ORDERED: NALOXONE 0.4 MG/ML VIAL IVP PRN (19:20)
[2021-07-20] MEDS ORDERED: METOCLOPRAMIDE 10 MG/2 ML VIAL IVP PRN (19:20)
[2021-07-20] MEDS ORDERED: diphenhydrAMINE INJ 50 MG/ML VIAL IVP PRN (19:20)
[2021-07-20] MEDS ORDERED: ONDANSETRON 4 MG/2 ML VIAL IVP PRN (19:20)
[2021-07-20] MEDS ORDERED: NALBUPHINE 10 MG/ML AMP IVP PRN (19:20)
[2021-07-20] MEDS ORDERED: ePHEDrine 50 MG/ML VIAL IVP PRN (19:20)
[2021-07-20] MEDS ORDERED: ROPIVACAINE 0.2% 200 MG/100 ML BAG EP PRN (19:20)
[2021-07-20] MEDS: SODIUM CHLORIDE FLUSH 0.9% 10 ML SYRINGE IVP SCH (19:49)
[2021-07-20] MEDS ORDERED: CITRIC ACID/SODIUM CITRATE 15 ML UDC PO ONE (21:07)
[2021-07-20] MEDS: CALCIUM CARBONATE CHEW 500 MG TABLET PO SCH (21:17)
--- NOTE | 2021-07-20 22:14 | PROVIDER PROGRESS NOTE ---
Labor Progress Note - Uterine Monitoring Uterine Monitoring Mode: positive: External toco Contraction Frequency (min/apart): 2-6 minutes Contraction Intensity: positive: Moderate Uterine Resting Tone: positive: Soft - Monitoring Heart Rate Baseline: 130 Heart Rate Variability: positive: Moderate (6-25 bmp) Accelerations: positive: Present, 15x15 Decelerations: positive: None Strip Review: positive: Category I - Vaginal Exam Dilation (in cm): 4 Effacement (%): 50 Station: -2 - Labor Progress Note Labor Progress Note/Additional Text: Patient at 38 weeks 1 day gestation. Since hydration and her epidural, contractions have mildly spaced out, but still occurring. She made minimal cervical change at this point. Discussed that she made relatively quick change from 2 to 4 cm earlier today, but has since stalled. As she is continued to contract, will continue to monitor overnight. heart tracing is category 1.
[2021-07-20] MEDS: AMPICILLIN 1 GM in SODIUM CHLORIDE 0.9% MINIBAG 100 ML IV SCH (22:15)
[2021-07-21] MEDS ORDERED: ZOLPIDEM 5 MG TABLET PO PRN (01:05)
[2021-07-21] MEDS: AMPICILLIN 1 GM in SODIUM CHLORIDE 0.9% MINIBAG 100 ML IV SCH ×4 (02:30→14:06)
[2021-07-21] MEDS: SODIUM CHLORIDE FLUSH 0.9% 10 ML SYRINGE IVP SCH (06:01)
--- NOTE | 2021-07-21 07:47 | PROVIDER PROGRESS NOTE ---
Labor Progress Note - Uterine Monitoring Uterine Monitoring Mode: positive: External toco Contraction Frequency (min/apart): Irregular Contraction Intensity: positive: Moderate Uterine Resting Tone: positive: Soft - Monitoring Monitor Mode: positive: External ultrasound Heart Rate Baseline: 140 Heart Rate Variability: positive: Moderate (6-25 bmp) Accelerations: positive: Present, 15x15 Decelerations: positive: None Strip Review: positive: Category I - Vaginal Exam Dilation (in cm): 4 Effacement (%): 50 Station: -3 - Labor Progress Note Labor Progress Note/Additional Text: Patient remained unchanged last night. Approximately 1 hour ago patient had spontaneous rupture of membranes of fluid with bloody show. Pad was changed and she subsequently had 3 more episodes of leaking. Upon my reexamination, she was unchanged. Contractions have significantly spaced out and are irregular. Discussed waiting for contractions versus starting oxytocin, and patient elects for oxytocin rather than spontaneous contractions at this time. Continues to have a category 1 tracing.
[2021-07-21] MEDS ORDERED: OXYTOCIN/SODIUM CHLORIDE 500 ML IV SCH (08:00)
[2021-07-21] MEDS: CALCIUM CARBONATE CHEW 500 MG TABLET PO SCH (14:10)
--- NOTE | 2021-07-21 16:43 | PROVIDER PROGRESS NOTE ---
Labor Progress Note - Uterine Monitoring Uterine Monitoring Mode: positive: External toco Contraction Frequency (min/apart): 2-3, difficult to trace while on side Contraction Intensity: positive: Moderate Uterine Resting Tone: positive: Soft - Monitoring Monitor Mode: positive: External ultrasound Heart Rate Baseline: 140 Heart Rate Variability: positive: Moderate (6-25 bmp) Accelerations: positive: Present, 15x15 Decelerations: positive: None Strip Review: positive: Category I - Vaginal Exam Dilation (in cm): 4 Effacement (%): 50 Station: -3 - Labor Progress Note Labor Progress Note/Additional Text: Epidural in place, still 4 cm, so IUPC was placed. This allowed another gush of fluid. Currently at 19 mL/min. Will assess contractions with IUPC, consider increasing slightly versus oxytocin rest.Category 1 tracing reassuring.
[2021-07-21] MEDS ORDERED: LIDOCAINE-MPF 1% 30 ML VIAL ONE (17:17)
--- NOTE | 2021-07-21 18:12 | DELIVERY NOTE ---
Delivery Note - Labor Labor: positive: Augmented by oxytocin - Delivery Method Delivery Method: positive: Spontaneous vaginal delivery - Presentation Presentation: positive: RO - right occiput anterior - Nuchal Cord Nuchal Cord: positive: Present (incomplete nuchal cord) - Anesthetic Anesthetic Type: - Amniotic Fluid Description Amniotic Fluid Description: positive: Clear - Laceration Laceration: positive: None - Delivery Outcome Delivery Outcome: positive: Livebirth - : positive: Placed in direct skin contact with mother [place] sex: positive: Male - Cord Cord: positive: 3 vessels - Placenta Placenta: positive: Intact, Spontaneous - Estimated Blood Loss Estimated Blood Loss (in cc): 200 - Post Delivery Events Post Delivery Events: positive: No post delivery events - Delivery Comments (Free Text/Narrative) Delivery Comments (Free Text/Narrative): Preoperative Diagnoses [id number] Term labor Spontaneous rupture of membranes Gestational diabetes GBS positive Postoperative Diagnoses Same Delivered Delivery Summary: Patient was placed in the dorsal lithotomy position. Upon maternal pushing the head was delivered atraumatically followed by the anterior shoulder, posterior shoulder, then the remainder of the 's body. A male infant was delivered with APGARS of 9 at 1 minute and 9 at 5 minutes. The infant was placed on its mother's chest . After the cord finished pulsating, the umbilical cord was clamped times two and cut. The placenta delivered intact with three vessel cord. Placenta was not sent to pathology. Thirty units of Pitocin were added to the IV fluid and allowed to run freely. Uterine massage was performed until uterus was deemed firm. Upon inspection of the perineum, vagina and cervix were intact. Uterus again massaged and found to be firm. Needle and sponge counts were correct. Patient was stable and allowed to recover in L&D room. was stable and remained in room with mother. weight is pending at this time.
[2021-07-21] MEDS ORDERED: SIMETHICONE CHEW 80 MG TABLET PO PRN (18:18)
[2021-07-21] MEDS ORDERED: DOCUSATE SODIUM 100 MG CAPSULE PO PRN (18:18)
[2021-07-21] MEDS: ACETAMINOPHEN 500 MG TABLET PO PRN (18:35)
[2021-07-21] MEDS: IBUPROFEN 600 MG TABLET PO SCH (18:44)
[2021-07-21] MEDS ORDERED: LACTATED RINGERS 1,000 ML IV SCH (19:00)
[2021-07-21] MEDS: WITCH HAZEL/GLYCERIN 1 PAD TOP PRN (23:45)
[2021-07-22] MEDS: IBUPROFEN 600 MG TABLET PO SCH ×4 (00:02→18:09)
[2021-07-22] MEDS: ACETAMINOPHEN 500 MG TABLET PO PRN ×3 (00:02→14:30)
[2021-07-22] MEDS ORDERED: DOCUSATE SODIUM 250 MG CAPSULE PO SCH (09:00)
[2021-07-22] MEDS: CALCIUM CARBONATE CHEW 500 MG TABLET PO SCH (09:06)
--- NOTE | 2021-07-22 11:40 | DISCHARGE SUMMARY ---
Discharge Summary Admit Date: 07/20/21 Discharge Date: 07/22/21 Discharging Provider: Vin Nunez MD Code Status: Attempt Resuscitation Condition at Discharge: Good Discharge Disposition: 01 Home, Self Care - DIAGNOSES Admission Diagnoses: 38 weeks gestation Term Labor Discharge Diagnoses with Status of Each Condition: 38 weeks gestation Term labor Spontaneous rupture of membranes Status post spontaneous vaginal delivery. - HPI History of Present Illness: Subjective Patient reports she is doing well. Lochia appropriate. Denies heavy bleeding. Ambulating. Pelvic and abdominal pain well-controlled. Tolerating oral intake. Diet: Regular. Voiding without difficulty. Passing flatus. Denies BM. Patient is bonding with baby in room Breast feeding going well. Denies feeling lightheaded, dizzy or excessively fatigued. Objective General: Alert, oriented, no apparent distress. Cardiovascular: Regular rate. Regular rhythm. Lungs: No increased work of breathing. Abdomen: Uterus firm. Below umbilicus. No guarding or rebound. - HOSPITAL COURSE Hospital Course: Patient is a 36-year-old who presented at 38 weeks, 1 day gesation with contractions. She was seen in clinic earlier that day and was 2 centimeters dilated and jaziel regularly. She elected to go home. She arrived on L&D several hours later and was 4 cm dilated. She admitted to labor and delivery for term labor. Antibiotics were started for GBS sepsis prophylaxis. She rec eived an epidural for pain control. She had spontaneous rupture of membranes. Oxytocin was eventually started for hypotonic uterine contractions. She progressed to complete and delivered a healthy boy weighting 2898 grams. Mother and baby were doing well and were dishcarged on day 1. - ALLERGIES Allergies/Adverse Reactions: Allergies Allergy/AdvReac Type Severity Reaction Status Date / Time hydrocodone [From [place]] Allergy Anaphylaxis Verified 03/05/20 09:13 - MEDICATIONS Home Medications: Ambulatory Orders Medication Instructions Recorded Confirmed Benzonatate [Tessalon] 100 mg PO TID #30 cap 06/16/21 Docusate Sodium 100Mg Capsule 100 mg PO DAILY #30 cap 07/22/21 [Colace 100Mg Capsule] Ibuprofen [Motrin] 600 mg PO Q6H PRN #30 tab 07/22/21 - LABS Result Diagrams: 07/20/21 16:59 07/20/21 18:03 - FOLLOW UP Follow Up: Asuncion McSorley in 1 week - TIME SPENT Time Spent in Discharge (Minutes): 20
--- NOTE | 2021-07-22 11:43 | Discharge Plan ---
Discharge Plan Problem Reviewed?: Yes Disposition: Home, Self Care Condition: Good Prescriptions: Docusate Sodium 100Mg Capsule [Colace 100Mg Capsule] 100 mg PO DAILY #30 cap Ibuprofen [Motrin] 600 mg PO Q6H PRN #30 tab PRN Reason: Pain Diet: Regular Activity Restrictions: Per instructions Shower Restrictions: No Driving Restrictions: No Instruction Topics: Vaginal After No Smoking: If you smoke, Please STOP! Call for help. Follow-up with: MANINDER ALVAREZ ARNP [Primary Care Provider] - Farrah Toussaint MD [Provider Admit Priv/Credential] -
[2021-07-22 16:46] VITALS: BP 111/67
[2021-07-22] MEDS: WITCH HAZEL/GLYCERIN 1 PAD TOP PRN (18:15)
--- NOTE | 2021-07-22 19:47 | Labor Flowsheet ---
Labor Flowsheet Datetime Report Generated by CPN: 07/22/2021 19:47 Datetime: 07/22/2021 16:33 VITAL SIGNS NBP Sys/Danitza/Mean (mmHg): 111 : 67 : 78 Pulse: 70 Datetime: 07/22/2021 04:49 SpO2 (%): 99 Datetime: 07/21/2021 18:03 Stage of : PAIN Pain Scale: 7 Pain Presence: Intermittent Pain Type: Sharp Pain Location: Abdomen Pain Goal: 9 Datetime: 07/21/2021 18:01 Comments: placenta/pit up at 999ml/hr Datetime: 07/21/2021 17:55 UTERINE ACTIVITY Monitor Mode: Internal Frequency (min): 2-2.5 Quality: Strong Duration (sec): 40-50 Pattern: Normal: <= 5 Contractions in 10 Minutes Resting Tone (Palpate): Relaxed FHR Baseline Rate : 150 Variability: Moderate 6-25 bpm Accelerations: None Decelerations: Early; Variable Category: Category II Patient Care Comments: female LaborFlag: Labor Datetime: 07/21/2021 17:49 COMMUNICATION Communication: Provider at Bedside Communication Comments: set up for delivery Datetime: 07/21/2021 17:46 VAGINAL EXAM Dilatation (cm): 10.0 Effacement (%): 100 Station: 2 Exam by: gambsc Datetime: 07/21/2021 17:45 FHR Baseline Changes: No Baseline Change Datetime: 07/21/2021 17:33 Monitor Interventions for FHR: Ultrasound Adjusted Datetime: 07/21/2021 17:30 [place] Units (mmHg): 210 Hygiene: Yumiko Care; Underpad Changed; Peripad Changed Datetime: 07/21/2021 17:26 MEDICATIONS Pitocin (milliunits): Increased to @ 20 Datetime: 07/21/2021 17:16 Monitor Interventions for UA: IUPC Inserted Datetime: 07/21/2021 17:10 Epidural Procedure: Loading Dose Datetime: 07/21/2021 16:58 Temperature (C): 36.9 Datetime: 07/21/2021 16:54 Anesthesia Comments: SUPERVISOR ORCHARD called, will be in to see pt. shortly Datetime: 07/21/2021 16:44 Pain Assessment Comments: low abd. change in position from high throne to left lateral. PATIENT CARE Patient Position/Activity: Left Lateral Datetime: 07/21/2021 16:24 Vaginal Exam Comments: unchanged Datetime: 07/21/2021 15:45 Contraction Comments: coupling Datetime: 07/21/2021 15:15 ASSESSMENT A Monitor Mode: External US Datetime: 07/21/2021 14:06 Antibiotics: Ampicillin IV 1 Gm Datetime: 07/21/2021 11:59 I/O Interventions: White Cath Inserted Datetime: 07/21/2021 11:46 Pitocin Checklist: At Least 1 Acceleration of 15 bpm x 15 Seconds in 30 Minutes or Adequate Variabi lity; No More than 1 Late Deceleration Occurred in Past 30 Minutes; No More than 2 Variable Decelerat ions > 60 Seconds in Duration and decreasing >60 bpm in 30 minutes; No More than 5 Uterine Contractio ns in 10 Minutes for any 20 Minute Interval; Uterus Palpates Soft between Contractions Datetime: 07/21/2021 10:44 Pain Coping: Sleeping Datetime: 07/21/2021 09:28 Temperature Route: Oral Datetime: 07/21/2021 08:12 Membrane Comments: cont. to have LOF. clear. Datetime: 07/21/2021 00:34 Provider Notified (Name): Enrique Datetime: 07/20/2021 22:10 Vaginal Bleeding: None Cervix, Consistency: Firm Cervix, Position: Midposition Datetime: 07/20/2021 20:17 Provider Reviewed Strip: No Notification Reason: Status Update Datetime: 07/20/2021 20:12 Epidural Procedure Other: Pump Started Datetime: 07/20/2021 19:45 PROCEDURE TIME OUT Procedure Type: epidural Procedure Verify: Correct Patient Position ANESTHESIA Anesthesia Plans: Epidural Epidural Positioning: Sitting Datetime: 07/20/2021 19:40 Comfort Measures: Anesthesia Notified
== END 2021-07-22 19:45 | disposition home or self-care (01) | DRG 807 ==
LOC: WFO 16:28 → FBP 16:30 → WFO 16:58 → FBP 16:59
PROVIDERS: ADMIT Obstetrics & Gynecology; ATTEND Obstetrics & Gynecology
PROC: 10H07YZ Insertion of Other Device into Products of Conception, Via Natural or Artificial Opening (ICD-10-PCS; principal; 2021-07-21)
PROC: 10E0XZZ Delivery of Products of Conception, External Approach (ICD-10-PCS; 2021-07-21)
DX: O24.420 Gestational diabetes mellitus in childbirth, diet controlled (principal); Z37.0 Single live birth; O62.0 Primary inadequate contractions; O99.02 Anemia complicating childbirth; O99.824 Streptococcus B carrier state complicating childbirth; Z3A.38 38 weeks gestation of pregnancy
CPT/HCPCS: 80053; 85025; 86850; 86900; 86901; A9270; J7120; 99215

== ENCOUNTER 2022-01-08 09:47 | Emergency (ER) | payer OTHER ==
[2022-01-08 10:04] VITALS: BP 117/78
--- NOTE | 2022-01-08 11:01 | ED Physician Documentation ---
PD HPI URI - Stated complaint Stated Complaint: SOA - Chief complaint Chief Complaint: Resp - History obtained from History obtained from: Patient - History of Present Illness Timing - onset: How many days ago (few) Timing duration: Days (few) Timing details: Gradual onset, Still present Associated symptoms: Nasal congestion, Dry cough, Dyspnea. No: Fever, Chills, Sore throat, Productive cough, NVD, Bilateral edema Contributing factors: Unimmunized, COPD / asthma. No: Sick contact, Immunocompromised Improves by: Rest Worsened by: Activity Similar symptoms before: Diagnosis (some intermittent asthma and reactive airways in the past.) Recently seen: Not recently seen Review of Systems Constitutional: reports: Fatigue. denies: Fever, Myalgias Ears: denies: Ear pain Nose: reports: Congestion Throat: denies: Sore throat Cardiac: denies: Chest pain / pressure Respiratory: reports: Cough, Wheezing GI: denies: Vomiting, Diarrhea Musculoskeletal: denies: Extremity swelling PD PAST MEDICAL HISTORY - Past Medical History Past Medical History: Yes Cardiovascular: None Respiratory: Asthma Neuro: None Endocrine/Autoimmune: Other GI: None DIRECTOR PHONE: None : None HEENT: None Psych: None Musculoskeletal: None Derm: None - Past Surgical History Past Surgical History: No - Present Medications Home Medications: Ambulatory Orders Medication Instructions Recorded Confirmed Albuterol Sulf [Ventolin Hfa 2 - 3 puffs INH Q4HR PRN #1 gm 01/08/22 Inhaler] Albuterol Sulfate [Proair Hfa 1 - 2 puffs INH Q4H PRN 01/08/22 01/08/22 Inhaler] Cetirizine [ZyrTEC] 10 mg PO DAILY 01/08/22 01/08/22 Cetirizine [ZyrTEC] 10 mg PO DAILY #30 tablet 01/08/22 Fluticasone Propion/Salmeterol 1 each IH BID 30 Days #1 packet 01/08/22 [Fluticasone-Salmeterol 250-50] dexAMETHasone [Decadron] 4 mg PO DAILY #5 tablet 01/08/22 - Allergies Allergies/Adverse Reactions: Allergies Allergy/AdvReac Type Severity Reaction Status Date / Time hydrocodone [From [place]] Allergy Anaphylaxis Verified 01/08/22 10:04 - Social History Does the pt smoke?: No Smoking Status: Light tobacco smoker Does the pt drink ETOH?: No Does the pt have substance abuse?: No - Immunizations Immunizations are current?: No Immunizations: Other immun not current PD ED PE NORMAL - Vitals Vital signs reviewed: Yes - General General: Alert and oriented X 3, No acute distress, Well developed/nourished - HEENT HEENT: Ears normal, Pharynx benign - Neck Neck: Supple, no meningeal sign, No adenopathy - Cardiac Cardiac: RRR, No murmur - Respiratory Respiratory: No: Clear bilaterally (no coarse sounds. Exp wheezing noted.) - Back Back: No CVA TTP - Derm Derm: Normal color, Warm and dry, No rash - Extremities Extremities: No edema, No calf tenderness / cord - Neuro Neuro: Alert and oriented X 3, No motor deficit, Normal speech Results - Vitals Vitals: Oxygen O2 Source Room air PD MEDICAL DECISION MAKING - ED course Complexity details: re-evaluated patient (improved breaathing with albuterol MDI. ), considered differential (sounds like may be environmental irritants 9smoke) causing asthma exac and seems less infectious. Not sounding bacterial. ), d/w patient Departure - Departure Disposition: 01 Home, Self Care Clinical Impression: Wheezing Exacerbation of asthma Qualifiers: Asthma severity: mild Asthma persistence: intermittent Qualified Code(s): J45.21 - Mild intermittent asthma with (acute) exacerbation Condition: Stable Instructions: Asthma Dc Follow-Up: MANINDER ALVAREZ ARNP [Primary Care Provider] - Prescriptions: Albuterol Sulf [Ventolin Hfa Inhaler] 2 - 3 puffs INH Q4HR PRN #1 gm PRN Reason: Shortness Of Air/Wheezing dexAMETHasone [Decadron] 4 mg PO DAILY #5 tablet Fluticasone Propion/Salmeterol [Fluticasone-Salmeterol 250-50] 1 each IH BID 30 Days #1 packet Cetirizine [ZyrTEC] 10 mg PO DAILY #30 tablet Comments: For your asthma, I would have you start a combination of steroid and long-acting beta agonist (Fluticasone and Salmeterol). For the next 5 days but also have you take an oral steroid dexamethasone to help with airway inflammation. Continue with the albuterol rescue inhaler 2 to 3 puffs 4 times a day as needed for the next few days. Continue with your cetirizine allergy medicine twice daily for the next several days and then could go to once daily. Follow-up with your primary care with regard to further evaluation or referral to engineering supervisor /asthma specialist. I sent your prescription to your preferred pharmacy. Discharge Date/Time: 01/08/22 12:52
[2022-01-08] MEDS ORDERED: DEXAMETHASONE 10 MG/ML VIAL PO STA (11:25)
[2022-01-08] MEDS ORDERED: CHERRY SYRUP 10 ML UDC PO ONE (11:25)
[2022-01-08] MEDS ORDERED: ALBUTEROL NEB 2.5 MG/3 ML INH STA (11:25)
== END 2022-01-08 12:52 | disposition home or self-care (01) ==
LOC: ED 09:47
DX: J45.21 Mild intermittent asthma with (acute) exacerbation (principal); Z72.0 Tobacco use
CPT/HCPCS: 94640; 99283; A9270